=== PATIENT | male | born 1945 | race Caucasian/White ===

== ENCOUNTER 2016-12-08 15:30 | Inpatient (IN) | payer OTHER, BC ==
[~2016-12-08] VITALS: Ht 172.7 cm; Wt 98.8 kg
[~2016-12-08 15:30] MED LIST: ADULT LOW DOSE81 M1 PO; ADVAIR 250/501 DISK IH; ASPIR-LOW81 MG PO; ATORVASTATIN CA20 MG PO; BACTRIM,SEPT1 TABLET PO; CEFDINIR300 MG PO; CRESTOR10 MG PO; ESCITALOPRAM OX10 MG PO; FIBER THERAPY0.52 GM PO; FIBER1 GM PO; FLOMAX0.4 MG PO; GLIPIZIDE10 MG PO; GLUCOTROL5 MG PO; LANSOPRAZOLE30 MG PO; LEVOFLOXACIN500 MG PO; LEXAPRO10 MG PO; LOPRESSOR50 MG PO; METOPROLOL TART50 MG PO; NITROGLYCERIN0.4 MG SL; NITROSTAT0.4 MG SL; PANTOPRAZOLE SO40 MG PO; PREDNISONE20 MG PO; PREVACID30 MG PO; STELARA45 MG/0.1; STELARA45 MG/0.1 SQ; STELARA90 MG/1 ML SC; TAMSULOSIN HCL0.4 MG PO
[2016-12-08 15:54] LABS: POINT-OF-CARE METER ID UU13113778
[2016-12-08 16:12] LABS: HEMATOCRIT 40.4 % (38.0-50.0); MCH 31.5 PG (29.0-34.0); MCHC 34.7 G/DL (30.0-36.0); MCV 90.8 FL (86-99); MEAN PLAT.VOLUME 9.5 uM^3 (9.0-12.4); PLATELET COUNT 207 K/uL (156-360); RBC DIS.WIDTH-SD 40.2 % (39-53); RED BLOOD COUNT 4.45 M/uL (4.00-5.50); WHITE BLOOD COUNT 23.7 K/uL (4.1-10.2)
[2016-12-08 16:23] LABS: CHLORIDE 102 mEq/L (99-109); POTASSIUM 4.4 mEq/L (3.7-5.4); SODIUM 133 mEq/L (136-147)
[2016-12-08 16:25] LABS: GLUCOSE 395 mg/dL (70-99)
[2016-12-08 16:26] LABS: ANION GAP 10 MEQ/L (2-14)
[2016-12-08 16:27] LABS: TOTAL BILIRUBIN 1.1 mg/dL (0.0-1.0)
[2016-12-08 16:28] LABS: ALKALINE PHOSPHATASE 80 IU/L (3-129)
[2016-12-08 16:29] LABS: GFR ESTIMATE (CALCULATED) 53 mL/min/
[2016-12-08 16:30] LABS: UREA NITROGEN (BUN) 17 mg/dL (9-23)
[2016-12-08 17:12] LABS: ADD MIUA? YES; BILIRUBIN NEGATIVE; BLOOD MODERATE; COLOR YELLOW ((YELLOW)); GLUCOSE (STRIP) >=500; KETONES 5; LEUKOCYTES SMALL; NITRITE POSITIVE; PROTEIN (STRIP) 30; SPECIFIC GRAVITY 1.038 (1.000-1.030); UROBILINOGEN 0.2 MG/DL (0.2-1.0)
[2016-12-08] MEDS ORDERED: FORTAMET1000 M1 PO (17:16)
[2016-12-08] MEDS ORDERED: LANSOPRAZOLE30 MG PO (17:16)
[2016-12-08 17:17] LABS: BACTERIA 2+ /HPF; EPITHELIAL CELLS RARE /HPF; MUCUS 2+ /LPF; RED BLOOD CELLS 40-50 /HPF (0-5); UCUL ADDED? YES; WHITE BLOOD CELLS TNTC /HPF (0-5); WHITE BLOOD CELLS CLUMP MOD /HPF (0-5)
[2016-12-08] MEDS ORDERED: RAPAFLO8 MG PO (17:17)
[2016-12-08] MEDS ORDERED: LOSARTAN POTASS25 MG PO (17:17)
[2016-12-08] MEDS ORDERED: COSENTYX P150 MG/1 M SC (17:17)
[2016-12-08 19:44] VITALS: BP 117/62
[2016-12-08 21:43] LABS: POINT-OF-CARE USER ID 609231305
[2016-12-09] VITALS: BP 106/60
[2016-12-09 06:15] VITALS: BP 109/59
[2016-12-09 07:01] LABS: HEMATOCRIT 34.8 % (38.0-50.0); MCH 31.7 PG (29.0-34.0); MCHC 33.9 G/DL (30.0-36.0); MCV 93.5 FL (86-99); MEAN PLAT.VOLUME 9.7 uM^3 (9.0-12.4); PLATELET COUNT 154 K/uL (156-360); RBC DIS.WIDTH-CV 12.3 % (11.8-14.6); RBC DIS.WIDTH-SD 42.1 % (39-53); RED BLOOD COUNT 3.72 M/uL (4.00-5.50); WHITE BLOOD COUNT 18.7 K/uL (4.1-10.2)
[2016-12-09 07:16] LABS: ALKALINE PHOSPHATASE 61 IU/L (3-129); ANION GAP 7 MEQ/L (2-14); CHLORIDE 106 MEQ/L (99-109); GFR ESTIMATE (CALCULATED) > 59 mL/min/; POTASSIUM 3.6 MEQ/L (3.7-5.4); SAMPLE HEMOLYSIS CHECK 0; SAMPLE ICTERIC CHECK 0; SAMPLE LIPEMIA CHECK 0; SODIUM 137 MEQ/L (136-147); TOTAL BILIRUBIN 0.8 MG/DL (0.0-1.0); UREA NITROGEN (BUN) 18 mg/dL (9-23)
[2016-12-09 07:18] LABS: GLUCOSE 192 mg/dL (70-99)
[2016-12-09 08:13] VITALS: BP 115/65
[2016-12-09 11:24] LABS: POINT-OF-CARE METER ID UU14162508
[2016-12-09 11:30] VITALS: BP 126/64
[2016-12-09 15:15] VITALS: BP 108/59
[2016-12-09 16:39] LABS: POINT-OF-CARE METER ID UU14162508
[2016-12-09 20:53] VITALS: BP 131/65
[2016-12-09 22:07] LABS: POINT-OF-CARE METER ID UU14162508
[2016-12-10 00:49] VITALS: BP 124/63
[2016-12-10 04:48] VITALS: BP 116/60
[2016-12-10 06:44] LABS: HEMATOCRIT 34.4 % (38.0-50.0); MCH 31.9 PG (29.0-34.0); MCHC 33.7 G/DL (30.0-36.0); MCV 94.5 FL (86-99); PLATELET COUNT 162 K/uL (156-360); RBC DIS.WIDTH-CV 12.3 % (11.8-14.6); RBC DIS.WIDTH-SD 42.8 % (39-53); RED BLOOD COUNT 3.64 M/uL (4.00-5.50)
[2016-12-10 06:45] LABS: POINT-OF-CARE METER ID UU14162508
[2016-12-10 07:06] LABS: Estimated Average Glucose 255 mg/dL (70-123); HEMOGLOBIN A1c (GLYCOHEMOGLOB) 10.5 % HGB (Below 5.7)
[2016-12-10 07:16] LABS: ANION GAP 8 MEQ/L (2-14); CHLORIDE 106 MEQ/L (99-109); GFR ESTIMATE (CALCULATED) > 59 mL/min/; GLUCOSE 187 mg/dL (70-99); MAGNESIUM 1.7 mg/dl (1.3-2.7); POTASSIUM 4.2 MEQ/L (3.7-5.4); SAMPLE HEMOLYSIS CHECK 0; SAMPLE ICTERIC CHECK 0; SAMPLE LIPEMIA CHECK 0; SODIUM 138 MEQ/L (136-147); UREA NITROGEN (BUN) 15 mg/dL (9-23)
[2016-12-10 08:00] VITALS: BP 125/79
[2016-12-10 08:25] LABS: POINT-OF-CARE METER ID UU14162508
[2016-12-10 11:15] VITALS: BP 122/68
[2016-12-10 15:20] VITALS: BP 138/63
[2016-12-10 16:49] LABS: POINT-OF-CARE METER ID UU14162508
[2016-12-10 20:17] VITALS: BP 144/78
[2016-12-11 00:04] VITALS: BP 127/72
[2016-12-11 03:04] VITALS: BP 111/56
[2016-12-11 07:23] LABS: HEMATOCRIT 34.3 % (38.0-50.0); MCH 32.3 PG (29.0-34.0); MCHC 34.4 G/DL (30.0-36.0); MEAN PLAT.VOLUME 10.3 uM^3 (9.0-12.4); PLATELET COUNT 178 K/uL (156-360); RBC DIS.WIDTH-CV 12.1 % (11.8-14.6); RBC DIS.WIDTH-SD 41.6 % (39-53); RED BLOOD COUNT 3.65 M/uL (4.00-5.50); WHITE BLOOD COUNT 7.7 K/uL (4.1-10.2)
[2016-12-11 07:52] LABS: ANION GAP 6 MEQ/L (2-14); CHLORIDE 105 MEQ/L (99-109); GFR ESTIMATE (CALCULATED) > 59 mL/min/; GLUCOSE 192 mg/dL (70-99); POTASSIUM 4.5 MEQ/L (3.7-5.4); SAMPLE HEMOLYSIS CHECK 0; SAMPLE ICTERIC CHECK 0; SAMPLE LIPEMIA CHECK 0; SODIUM 140 MEQ/L (136-147); UREA NITROGEN (BUN) 12 mg/dL (9-23)
[2016-12-11 09:25] VITALS: BP 131/67
[2016-12-11 16:00] VITALS: BP 138/72
[2016-12-11] MEDS ORDERED: TAMSULOSIN HCL0.4 MG PO (17:11)
[2016-12-11] MEDS ORDERED: KEFLEX500 MG PO (17:13)
== END 2016-12-11 17:55 | disposition home or self-care (01) | DRG 690 ==
LOC: EME 15:30 → EDOF 17:57 → 2EAST 17:57
PROVIDERS: Hospitalist; Internal Medicine
DX: N10 Acute pyelonephritis (principal); N17.9 Acute kidney failure, unspecified; E11.65 Type 2 diabetes mellitus with hyperglycemia; E87.6 Hypokalemia; E78.5 Hyperlipidemia, unspecified; I10 Essential (primary) hypertension; I25.10 Atherosclerotic heart disease of native coronary artery without angina pectoris; N40.0 Benign prostatic hyperplasia without lower urinary tract symptoms; N39.41 Urge incontinence; N41.1 Chronic prostatitis; G89.29 Other chronic pain; F32.9 Major depressive disorder, single episode, unspecified; F41.9 Anxiety disorder, unspecified; Z95.1 Presence of aortocoronary bypass graft; Z79.4 Long term (current) use of insulin; Z95.2 Presence of prosthetic heart valve; Z87.891 Personal history of nicotine dependence
CPT/HCPCS: 80048; 80053; 81003; 82948; 83036; 83735; 85027; 87040; 87077; 87086; 87186; 99281; 99285; J0696; J1644; J1815; J1885; J2270; J3475; J7030; J7050